=== PATIENT | male | born 1945 | race Caucasian/White ===

== ENCOUNTER → 2023-09-03 11:20 | Outpatient (CLI) | payer MEDICARE, BC, OTHER, SELFPAY ==
--- NOTE | 2023-09-03 11:21 | DI.CT.S_ITS ---
PROCEDURE: CT CHEST WO CON INDICATIONS: shortness of breath, follow-up RUL abscess and right empyema TECHNIQUE: Noncontrast 5 mm thick sections acquired from the pulmonary apices to the posterior costophrenic angles. 1 mm lung window, 5 mm thick coronal and sagittal and 7 mm axial MIP reformats were then acquired. For radiation dose reduction, the following was used: automated exposure control, adjustment of mA and/or kV according to patient size. COMPARISON: Outside Film, CT, CT CHEST WITH CONTRAST, 08/08/2021, 9:02. [facility], CT, CT CHEST WITHOUT CONTRAST, 09/18/2021, 11:44. [facility], CT, CT BIOPSY LUNG/MEDIASTINUM, 12/30/2021, 14:15. Outside Film, CR, XR CHEST 2 VIEWS, 04/25/2022, 12:00. [facility], CT, CT CHEST WITHOUT CONTRAST, 06/19/2022, 16:39. FINDINGS: Image quality: Diagnostic. Lower Neck: No enlarged lymph nodes. Thyroid: There is a 3.6 x 3.4 cm mass in the left thyroid lobe, unchanged in size. Axillae: No enlarged lymph nodes. Chest Wall: Unremarkable. Bones: Unremarkable. Lungs and Pleura: There is a 1.3 cm subsolid nodule in the right lower lobe (series 3, image 163), new since the last exam. Multifocal pleuroparenchymal scars and atelectasis is seen in the right upper lobe, right middle lobe and right lower lobe. There are numerous tiny nodules with tree-in-bud configuration involving both lower lobes with associated bronchiectasis. No pneumothorax or pleural effusions. No consolidation. Heart: Heart size is normal. No pericardial effusion. Severe coronary artery arthrosclerotic calcifications. Thoracic Vessels: The aorta and pulmonary arteries demonstrate normal size. Mediastinum and Paradise: No enlarged lymph nodes. Esophagus: No wall thickening. Small hiatal hernia. There is mild concentric thickening of the distal esophagus. Upper Abdomen: There is a 1 mm nonobstructive stone in the superior pole of the right kidney. Partial visualization of a cyst in the left upper quadrant, most likely arising from the superior pole of the left kidney. IMPRESSION: 1. There is a 1.3 cm subsolid nodule in the right lower lobe, new since the last exam. Recommend a short-term follow-up CT in 3 months. Alternatively, PET-CT can be obtained for further evaluation. 2. Numerous tiny nodules with tree-in-bud configuration involving both lower lobes with associated bronchiectasis. The findings may be secondary to chronic aspiration pneumonia. Recommend clinical correlation and follow-up to resolution. 3. Multifocal pleuroparenchymal scars and atelectasis is seen in the right upper lobe, right middle lobe and right lower lobe. 4. Large mass in the left thyroid lobe. Recommend thyroid ultrasound for follow-up per ACR guideline. 5. Small hiatal hernia. There is mild concentric thickening of the distal esophagus, probably related to gastroesophageal reflux. Consider esophagram or EGD if clinically indicated. 6. Severe coronary artery calcifications. Dictated by: Angelica Shore M.D. on 09/03/2023 at 16:17 Approved by: Angelica Shore M.D. on 09/04/2023 at 9:46
== END ==
PROVIDERS: PCP Physician Assistant; Referring Provider Internal Medicine; Visit Provider Internal Medicine
DX: J44.9 Chronic obstructive pulmonary disease, unspecified (principal); J98.11 Atelectasis; J47.9 Bronchiectasis, uncomplicated; J98.4 Other disorders of lung; R06.02 Shortness of breath; R91.1 Solitary pulmonary nodule; E07.9 Disorder of thyroid, unspecified; I25.10 Atherosclerotic heart disease of native coronary artery without angina pectoris; K44.9 Diaphragmatic hernia without obstruction or gangrene
CPT/HCPCS: 71250

== ENCOUNTER → 2023-09-25 11:38 | Outpatient (CLI) | payer MEDICARE, BC, OTHER, SELFPAY | PROVIDERS: PCP Physician Assistant; Referring Provider Internal Medicine; Visit Provider Internal Medicine | DX: J44.9 Chronic obstructive pulmonary disease, unspecified (principal); F17.210 Nicotine dependence, cigarettes, uncomplicated | CPT/HCPCS: 94060; 94726; 94729 ==

== ENCOUNTER → 2023-12-11 13:47 | Outpatient (CLI) | payer MEDICARE, BC, OTHER, SELFPAY ==
--- NOTE | 2023-12-11 13:49 | DI.CT.S_ITS ---
PROCEDURE: CT CHEST W CON INDICATIONS: fu 1.3cm right lower left nodule TECHNIQUE: After the administration of intravenous contrast, 5 mm thick sections acquired from the pulmonary apices to the posterior costophrenic angles. 1 mm axial lung, 5 mm thick coronal and sagittal reformats and 7 mm axial MIP were acquired. For radiation dose reduction, the following was used: automated exposure control, adjustment of mA and/or kV according to patient size. COMPARISON: [facility], CT, CT CHEST WITHOUT CONTRAST, 06/19/2022, 16:39. [facility], CT, CT BIOPSY LUNG/MEDIASTINUM, 12/30/2021, 14:15. [facility], CT, CT CHEST WO CON, 09/03/2023, 11:28. FINDINGS: Image quality: Diagnostic. Lower Neck: No enlarged lymph nodes. Thyroid: Substernal left thyroid nodule measuring 3.4 x 4.3 cm. Axillae: No enlarged lymph nodes. Chest Wall: Unremarkable. Bones: Advanced bilateral glenohumeral joint degenerative arthritis.. Lungs and Pleura: No pneumothorax or pleural effusions. There is a persistent density in the right upper lobe, which most likely represents nodular scarring which may be slightly decreased in size from the previous study. On previous image 90/3 it measured 2.4 x 1.3 cm. Currently, on image 89/3 it measures 2.2 x 1.1 cm. There is also pleural based nodular scarring present in the extreme right lung base posteriorly. No suspicious pulmonary nodules. Heart: Heart size is normal. No pericardial effusion. Severe coronary artery calcifications. Thoracic Vessels: The aorta and pulmonary arteries demonstrate normal size. Mediastinum and [place]: No enlarged lymph nodes. Esophagus: No wall thickening. Small hiatal hernia. Upper Abdomen: Visualized upper abdomen solid organs and bowel loops appear normal. IMPRESSION: 1. The nodular density in the right upper lobe likely represents residual nodular scarring, potentially having decreased in size since the most recent previous study. 2. There is also nodular scarring present in the extreme right lung base posteriorly. 3. 4.3 cm maximum diameter substernal left thyroid nodule. 4. Note made of advanced bilateral glenohumeral joint degenerative arthritis. Comment: Consider thyroid ultrasound for further evaluation of the thyroid nodule. Dictated by: Real Barrientos M.D. on 12/11/2023 at 15:17 Approved by: Real Barrientos M.D. on 12/11/2023 at 15:27
[2023-12-11 14:21] LABS: Estimated Glomerular Filt Rate > 60 mL/min (>60)
== END ==
LOC: CT 13:48
PROVIDERS: Radiology Diagnostic Radiology; PCP Physician Assistant; Referring Provider Internal Medicine; Visit Provider Internal Medicine
DX: R91.1 Solitary pulmonary nodule (principal); J44.9 Chronic obstructive pulmonary disease, unspecified; I25.10 Atherosclerotic heart disease of native coronary artery without angina pectoris; E04.1 Nontoxic single thyroid nodule; M19.011 Primary osteoarthritis, right shoulder; M19.012 Primary osteoarthritis, left shoulder; K44.9 Diaphragmatic hernia without obstruction or gangrene
CPT/HCPCS: 36415; 71260; 82565; Q9967

== ENCOUNTER 2024-02-25 12:30 | Outpatient (RCR) | payer MEDICARE, BC, OTHER, SELFPAY | END 2024-02-25 14:30 | LOC: PUL 12:30 | PROVIDERS: PCP Physician Assistant; Referring Provider Internal Medicine; Visit Provider Internal Medicine | DX: J44.9 Chronic obstructive pulmonary disease, unspecified (principal); R06.02 Shortness of breath | CPT/HCPCS: G0237; G0238 ==

== ENCOUNTER → 2024-10-27 19:12 | Outpatient (CLI) | payer MEDICARE, BC, OTHER, SELFPAY ==
--- NOTE | 2024-10-27 | DI.MRI.S_ITS ---
PROCEDURE: MR KNEE LT WO CON INDICATIONS: primary osteoarthritis lt knee TECHNIQUE: Noncontrast sagittal PD fast spin echo and T2 fast spin echo with fat saturation, sagittal 3-D FLASH with fat saturation; coronal T1 spin echo and PD fast spin echo with fat saturation, and axial PD fast spin echo with fat saturation through the knee. COMPARISON: None. FINDINGS: Image quality: Diagnostic Menisci: Medial: Likely degenerative internal signal abnormality and horizontal tear centered in the posterior horn Lateral: Macerated lateral meniscus. The anterior horn and anterior body are not well seen complex oblique and horizontal tear seen throughout the posterior body and posterior horn Cruciate ligaments: Intact Medial structures: MCL: Mild periligamentous edema Pes anserine tendons: Mild bursal edema Semimembranosus: Mild insertional tendinopathy Lateral structures: LCL: [id number] partial tear and proximal edema Biceps femoris: Mild thickening at the distal aspect IT band: Intact Popliteus tendon: Intact Anterior structures: Extensor mechanism: Thickening throughout the patellar tendon. Diffuse enthesopathy. Fat pads: Enthesopathy and osteophytes extending the Hoffa's fat pad, which has signal compatible also with scar tissue Medial retinaculum: Intact. Trochlea: Unremarkable morphology. Bone and joint: Bones: No fracture, dislocation, or suspicious edema Cartilage: Nearly full-thickness fissures seen in the medial facet of the patella. Moderate chondromalacia and slight partial-thickness cartilage loss is seen in the medial compartment. Full-thickness cartilage loss is seen throughout the lateral compartment, with small foci of subchondral edema Joint space: Moderate effusion, intra-articular debris is seen Raoms's cyst: Moderate to large Ramos's cyst Soft tissues: Diffuse soft tissue edema IMPRESSION: Macerated lateral meniscus and complex tears. Likely degenerative signal and horizontal tear of the medial meniscus. Intact cruciate ligaments. [id number] sprains/reactive edema of the collateral ligaments. Scarring and thickening of the patellar tendon with associated extensor mechanism enthesopathy. Prominent enthesophytes and osteophytes with scar tissue project into Hoffa's fat pad. Advanced degenerative changes of the lateral compartment, along with moderate chondromalacia and partial thickness chondral loss of the patellofemoral and medial compartments. Moderate joint effusion with intra-articular debris. Moderate to large Ramos's cyst. Diffuse soft tissue edema. Dictated by: Gigi Coto M.D. on 10/29/2024 at 6:18 Approved by: Gigi Coto M.D. on 10/29/2024 at 6:26
== END ==
PROVIDERS: PCP Physician Assistant; Referring Provider Orthopaedic Surgery Sports Medicine; Visit Provider Orthopaedic Surgery Sports Medicine
DX: M17.12 Unilateral primary osteoarthritis, left knee (principal); S83.272A Complex tear of lateral meniscus, current injury, left knee, initial encounter; M22.42 Chondromalacia patellae, left knee; M25.462 Effusion, left knee; M71.22 Synovial cyst of popliteal space [Baker], left knee
CPT/HCPCS: 73721

== ENCOUNTER → 2025-02-17 11:54 | Outpatient (CLI) | payer MEDICARE, BC, OTHER, SELFPAY ==
--- NOTE | 2025-02-17 11:59 | DI.CT.S_ITS ---
PROCEDURE: CT KNEE LEFT WITHOUT CON INDICATIONS: lt knee osteoarthritis TECHNIQUE: Noncontrast 1-1.5 mm axial sections acquired from the mid-patella to the proximal tibia, with coronal and sagittal reformats. COMPARISON: None. FINDINGS: Image quality: Excellent. Bones: Status post total knee arthroplasty, in near anatomic alignment. There is a nondisplaced, vertical fracture involving the medial femoral condyle, with incomplete callus formation, subacute. No periprosthetic lucency to suggest loosening. Soft tissues: Large knee effusion. Large popliteal cyst. Severe vascular calcification in the leg. 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 IMPRESSION: 1. Status post total knee arthroplasty. Nondisplaced, subacute vertical fracture of the medial femoral condyle. 2. Large knee effusion. Large popliteal cyst. Dictated by: Kathy James M.D. on 02/17/2025 at 17:18 Approved by: Kathy James M.D. on 02/17/2025 at 17:23
== END ==
LOC: CT 11:55
PROVIDERS: PCP Physician Assistant; Referring Provider Orthopaedic Surgery Sports Medicine; Visit Provider Orthopaedic Surgery Sports Medicine
DX: M17.12 Unilateral primary osteoarthritis, left knee (principal); S72.435A Nondisplaced fracture of medial condyle of left femur, initial encounter for closed fracture; M25.462 Effusion, left knee; M71.22 Synovial cyst of popliteal space [Baker], left knee; Z96.652 Presence of left artificial knee joint
CPT/HCPCS: 73700